=== PATIENT | female | born 1970 | race Caucasian/White ===

== ENCOUNTER 2022-07-09 14:45 | Outpatient (CLI) | payer BC | END 2022-07-09 14:46 | disposition home or self-care (01) | LOC: BICMAMMO 14:45 | PROVIDERS: ATTEND Family Medicine | DX: N63.20 Unspecified lump in the left breast, unspecified quadrant (principal); N63.10 Unspecified lump in the right breast, unspecified quadrant; R92.8 Other abnormal and inconclusive findings on diagnostic imaging of breast | CPT/HCPCS: 77066; G0279 ==

== ENCOUNTER 2023-11-04 14:42 | Inpatient (IN) | payer OTHER ==
[2023-11-04] MEDS ORDERED: dilTIAZem 125 MG/25 ML SDV ONE ×2 (14:58→14:59)
[2023-11-04] MEDS ORDERED: dilTIAZem 25 MG/5 ML VIAL ONE (15:00)
[2023-11-04 15:20] LABS: #Basophils 0.09 10x3/uL (0.0-0.2); %Eosinophils 1.7 % (0.0-10.0); %Lymphocytes 22.9 % (21.0-51.0); %Monocytes 12.6 % (0.0-10.0); %Neutrophils 61.5 % (42.0-75.0); Hematocrit 42.1 % (36.0-47.0); Hemoglobin 14.5 g/dL (12.0-16.0); Mean Corpuscular HGB CONC 34.4 g/dL (32.0-36.0); Mean Corpuscular Hemoglobin 29.2 pg (27.0-31.0); Mean Corpuscular Volume 84.9 fL (78.0-98.0); Mean Platelet Volume 9.2 fL (7.4-10.4); Platelet Count 327 10x3/uL (130-400); RBC Distribution Width 16.1 % (11.5-14.5); Red Blood Cell (RBC) Count 4.96 mill/uL (4.20-5.40)
[2023-11-04 15:31] LABS: Globulin 3.2 g/dL (2.4-3.5)
[2023-11-04 15:36] LABS: ALT (SGPT) 16 U/L (8-55); AST (SGOT) 19 U/L (5-34); Acetaminophen Less than 10 mcg/mL (10.0-30.0); Albumin 3.7 g/dL (3.5-5.0); Alcohol 60.3 mg/dL (Less than 10); Alkaline Phosphatase 78 U/L (40-110); Anion Gap 17 mmol/L (10-20); BUN (Urea Nitrogen) 12 mg/dL (9.8-20.1); Bilirubin, Total 0.4 mg/dL (0.2-1.2); Calc. Creatinine Clearance 0 mL/min (70-130); Calcium 9.6 mg/dL (7.8-10.44); Carbon Dioxide 23 mmol/L (22-29); Chloride 98 mmol/L (98-107); Estimated GFR 105; Glucose 120 mg/dL (70-105); Potassium 2.9 mmol/L (3.5-5.1); Protein, Total 6.9 g/dL (6.0-8.3); Salicylate Less than 8.0 mg/dL (15.0-30.0); Sodium 135 mmol/L (136-145)
[2023-11-04] MEDS ORDERED: Magnesium 2 GM/50 ML BAG (IN WATER) ONE (15:40)
[2023-11-04] MEDS ORDERED: Aspirin Chewable 81 MG TAB ONE (15:40)
[2023-11-04 16:10] LABS: Lipase 126 U/L (8-78)
[2023-11-04] MEDS ORDERED: Potassium Bicarbonate/Cit Ac 20 MEQ TAB ONE (16:32)
[2023-11-04] MEDS ORDERED: Enoxaparin 80 MG (0.8 mL) SYRINGE ONE (16:33)
[2023-11-04 16:41] LABS: Troponin I Less than 0.010 ng/mL (< 0.028)
[2023-11-04] MEDS ORDERED: Acetaminophen 325 MG TAB PO PRN (16:43)
[2023-11-04] MEDS ORDERED: Ondansetron ODT 4 MG TAB PO PRN (16:43)
[2023-11-04] MEDS ORDERED: Lorazepam 2 MG/ML VIAL IM PRN (16:43)
[2023-11-04] MEDS ORDERED: dilTIAZem 125 MG in Sodium Chloride 0.9% 100 ML IVPB SCH (17:00)
[2023-11-04] MEDS ORDERED: Metoprolol Tartrate 5 MG (5 mL) VIAL ONE (18:50)
[2023-11-04 20:57] VITALS: BMI 29.1
[2023-11-04] MEDS: Folic Acid 1 MG TAB PO SCH (22:13)
[2023-11-04] MEDS: Lactated Ringer's 1,000 ML IV SCH (22:13)
[2023-11-04] MEDS: Multivit, Therapeutic 1 TAB PO SCH (22:14)
[2023-11-04] MEDS: dilTIAZem 125 MG in Sodium Chloride 0.9% 100 ML IVPB SCH (23:33)
[2023-11-05 01:09] LABS: Anion Gap 14 mmol/L (10-20); BUN (Urea Nitrogen) 12 mg/dL (9.8-20.1); Calc. Creatinine Clearance 112 mL/min (70-130); Calcium 8.6 mg/dL (7.8-10.44); Carbon Dioxide 23 mmol/L (22-29); Chloride 105 mmol/L (98-107); Estimated GFR 101; Glucose 119 mg/dL (70-105); Potassium 3.7 mmol/L (3.5-5.1); Sodium 138 mmol/L (136-145)
[2023-11-05] MEDS: Enoxaparin 80 MG (0.8 mL) SYRINGE SC SCH (07:58)
[2023-11-05] MEDS: Folic Acid 1 MG TAB PO SCH (08:08)
[2023-11-05] MEDS: Multivit, Therapeutic 1 TAB PO SCH (08:08)
[2023-11-05] MEDS ORDERED: traMADol HCl 50 MG TAB PO PRN (08:53)
[2023-11-05] MEDS ORDERED: predniSONE 20 MG TAB PO SCH (09:00)
[2023-11-05] MEDS ORDERED: AZATHIOPRINE 75 MG PO SCH (09:00)
[2023-11-05] MEDS ORDERED: Non-Formulary Item 1 EACH (Fluoxetine Hcl [Fluoxetine Hcl] 40 MG Capsule) PO SCH (09:00)
[2023-11-05] MEDS ORDERED: Non-Formulary Item 1 EACH (Clonazepam [Clonazepam] 0.25 MG Tab.Rapdis) PO SCH (09:00)
[2023-11-05] MEDS ORDERED: Non-Formulary Item 1 EACH (Ursodiol [Ursodiol] 500 MG Tablet) PO SCH (09:00)
[2023-11-05 09:03] LABS: ALT (SGPT) 14 U/L (8-55); AST (SGOT) 15 U/L (5-34); Albumin 3.1 g/dL (3.5-5.0); Alkaline Phosphatase 54 U/L (40-110); Anion Gap 14 mmol/L (10-20); BUN (Urea Nitrogen) 11 mg/dL (9.8-20.1); Bilirubin, Total 0.5 mg/dL (0.2-1.2); Calc. Creatinine Clearance 121 mL/min (70-130); Calcium 8.7 mg/dL (7.8-10.44); Carbon Dioxide 23 mmol/L (22-29); Cardiac Risk 3.4 (Less than 4.5); Chloride 104 mmol/L (98-107); Cholesterol 182 mg/dl (< 200 Desired); Estimated GFR 106; Globulin 2.8 g/dL (2.4-3.5); Glucose 94 mg/dL (70-105); HDL Cholesterol 53 mg/dL (>60 Neg Risk); LDL Cholesterol, Calculated 103 mg/dL; Magnesium 2.1 mg/dL (1.6-2.6); Potassium 3.6 mmol/L (3.5-5.1); Protein, Total 5.9 g/dL (6.0-8.3); Sodium 137 mmol/L (136-145); Triglycerides 130 mg/dL (Less than 150)
[2023-11-05 09:14] LABS: #Basophils 0.08 10x3/uL (0.0-0.2); %Basophils 1.1 % (0.0-1.0); %Eosinophils 2.7 % (0.0-10.0); %Lymphocytes 26.8 % (21.0-51.0); %Monocytes 13.5 % (0.0-10.0); %Neutrophils 55.8 % (42.0-75.0); Hemoglobin 14.4 g/dL (12.0-16.0); Mean Corpuscular HGB CONC 32.7 g/dL (32.0-36.0); Mean Corpuscular Hemoglobin 28.5 pg (27.0-31.0); Mean Platelet Volume 9.9 fL (7.4-10.4); Platelet Count 296 10x3/uL (130-400); RBC Distribution Width 16.8 % (11.5-14.5); Red Blood Cell (RBC) Count 5.06 mill/uL (4.20-5.40)
[2023-11-05] MEDS: Lisinopril 10 MG TAB PO SCH (09:57)
[2023-11-05] MEDS: azaTHIOprine 50 MG TAB PO SCH (09:58)
[2023-11-05] MEDS: Potassium Chloride 20 MEQ TAB PO SCH (09:58)
[2023-11-05] MEDS: clonazePAM 1 MG TAB PO SCH (09:58)
[2023-11-05] MEDS: FLUoxetine HCl 20 MG CAP PO SCH (09:58)
[2023-11-05] MEDS: predniSONE 5 MG TAB PO SCH (09:58)
[2023-11-05] MEDS: Gabapentin 300 MG CAP PO SCH (09:58)
[2023-11-05] MEDS: URSODIOL 500 MG DT SCH (10:49)
[2023-11-05 10:54] LABS: Amphetamine Not Detected (NotDetected); Barbiturates Screen Not Detected (NotDetected); Benzodiazepine Screen Not Detected (NotDetected); Cocaine Metabolite Screen Not Detected (NotDetected); Methadone Not Detected (NotDetected); Methamphetamine Detected (NotDetected); Opiate Screen Not Detected (NotDetected); Oxycodone Screen Not Detected (NotDetected); Phencyclidine (PCP) Not Detected (NotDetected); THC/Cannabinoid Screen Not Detected (NotDetected); Tricyclic Screen Not Detected (NotDetected)
[2023-11-05 15:14] VITALS: BP 122/57; TEMP 97.8
[2023-11-05] MEDS ORDERED: Ursodiol 300 MG CAP PO SCH (21:00)
[2023-11-05] MEDS ORDERED: Lurasidone 20 MG TABLET PO SCH (21:00)
[2023-11-05] MEDS ORDERED: Lurasidone 40 MG TAB PO SCH (21:00)
[2023-11-05] MEDS ORDERED: Non-Formulary Item 1 EACH (Lurasidone Hcl [Latuda] 80 MG Tablet) PO SCH (21:00)
[2023-11-06] MEDS ORDERED: Enoxaparin 80 MG (0.8 mL) SYRINGE SC SCH (09:00)
[2023-11-07] MEDS ORDERED: Thiamine 100 MG TAB PO SCH (09:00)
== END 2023-11-05 18:06 | disposition home or self-care (01) | DRG 309 ==
LOC: ERS 14:42 → ERHOLD 16:33 → 2SW 20:20
PROVIDERS: ADMIT Family Medicine; ATTEND Family Medicine
DX: I48.91 Unspecified atrial fibrillation (principal); E87.1 Hypo-osmolality and hyponatremia; E87.6 Hypokalemia; F10.90 Alcohol use, unspecified, uncomplicated; I10 Essential (primary) hypertension; K75.4 Autoimmune hepatitis; Z91.041 Radiographic dye allergy status; Z88.0 Allergy status to penicillin; Z79.899 Other long term (current) drug therapy; Z98.890 Other specified postprocedural states
CPT/HCPCS: 36415; 71045; 80053; 80061; 80306; 80307; 83036; 83690; 83735; 83880; 84100; 84443; 84484; 85025; 85379; 93005; 93010; 93306; J1650; J3475; J3490; J7500; J7512